=== PATIENT | female | born 1985 | race Caucasian/White ===

== ENCOUNTER 2020-03-11 17:39 | Inpatient (IN) | payer BC ==
[2020-03-11] MEDS ORDERED: Tranexamic Acid 1,000 MG in Sodium Chloride 0.9% 100 ML IV PRN (17:47)
[2020-03-11] MEDS ORDERED: Lidocaine 1% 50 ML MDV INJECT PRN (17:47)
[2020-03-11] MEDS ORDERED: Sodium Chloride 0.9% 10 ML Syringe FLUSH PRN (17:47)
[2020-03-11] MEDS ORDERED: Misoprostol 200 MCG Tab PO PRN (17:47)
[2020-03-11] MEDS ORDERED: Nalbuphine 10 MG/1 ML Vial IVPUSH PRN (17:47)
[2020-03-11] MEDS ORDERED: Methylergonovine 0.2 MG/1 ML Amp IM PRN (17:47)
[2020-03-11] MEDS ORDERED: Water For Irrigation,Sterile 1,000 ML Container IRR PRN (17:47)
[2020-03-11] MEDS ORDERED: Butorphanol 1 MG/ML SDV IVPUSH PRN (17:47)
[2020-03-11] MEDS ORDERED: Carboprost Tromethamine 250 MCG/1 ML Amp IM PRN (17:47)
[2020-03-11] MEDS ORDERED: Sodium Chloride 0.9% 2.5 ML Syringe FLUSH PRN (17:47)
[2020-03-11] MEDS ORDERED: Sodium Chloride 0.9% 10 ML SDV IV PRN (17:47)
[2020-03-11] MEDS ORDERED: Oxytocin/0.9 % Sodium Chloride 30 UNIT/500 ML BAG ONE (17:53)
[2020-03-11] MEDS ORDERED: Lactated Ringers 1,000 ML IV SCH (18:00)
[2020-03-11] MEDS ORDERED: Oxytocin/0.9 % Sodium Chloride 30 UNIT/500 ML BAG IV SCH (18:00)
[2020-03-11] MEDS ORDERED: Lanolin 100% Cream 7 GM Tube TOP PRN (19:18)
[2020-03-11] MEDS ORDERED: Docusate Sodium 100 MG Cap PO PRN (19:18)
[2020-03-11] MEDS ORDERED: oxyCODONE 5 MG Tab PO PRN (19:18)
[2020-03-11] MEDS ORDERED: Bisacodyl 10 MG Supp RECTAL PRN (19:18)
[2020-03-11] MEDS ORDERED: Ibuprofen 800 MG Tab PO PRN (19:18)
[2020-03-11] MEDS ORDERED: Benzocaine/Menthol 20%-0.5% Spray 78 GM Cannister TOP PRN (19:18)
[2020-03-11] MEDS ORDERED: Acetaminophen 500 MG Tab PO PRN (19:18)
[2020-03-11] MEDS ORDERED: Witch Hazel Medicated Pads 40/Jar TOP PRN (19:18)
--- NOTE | 2020-03-11 19:25 | PCM.DEL ---
L & D Note - General Info Date of Service: 03/11/20 Mother's Due Date: 03/19/20 - Delivery Note Labor: Spontaneous Delivery Outcome: Livebirth Infant Delivery Method: Spontaneous Vaginal Delivery-Single Presentation: Right Occiput Anterior (ANGEL) Nuchal Cord: Present, Reduced (after delivery of body) Anesthesia Type: None Amniotic Fluid Description: Clear Episiotomy Type: None Laceration: Periurethral (right, hemostatic without repair) Placenta: Intact, Spontaneous Cord: 3 Vessels (velamentous insertion) Estimated Blood Loss: 300 [place]: Suctioned, Stimulated, Warmed Score 1 min: 7 Score 5 min: 9 Delivery Comments (Free Text/Narrative):: Male fetus, 3380g - General Info Date of Service: 03/11/20 - Patient Data Weight - Most Recent: 72.575 kg I&O - Last 24 Hours: Intake & Output 03/11/20 03/11/20 03/11/20 06:59 14:59 22:59 Intake Total 1000 Balance 1000 Lab Results Last 24 Hours: Laboratory Results - last 24 hr 03/11/20 Range/Units 18:20 WBC 17.18 H (4.0-11.0) K/uL RBC 3.92 L (4.30-5.90) M/uL Hgb 12.3 (12.0-16.0) g/dL Hct 36.9 (36.0-46.0) % MCV 94.1 (80.0-98.0) fL MCH 31.4 (27.0-32.0) pg MCHC 33.3 (31.0-37.0) g/dL RDW Std Deviation 46.0 (28.0-62.0) fl RDW Coeff of Rachel 13 (11.0-15.0) % Plt Count 204 (150-400) K/uL MPV 10.00 (7.40-12.00) fL Nucleated RBC % 0.0 /100WBC Nucleated RBCs # 0 K/uL Med Orders - Current: Current Medications Acetaminophen (Tylenol Extra Strength) 1,000 mg PO Q6H PRN PRN Reason: Pain Benzocaine/Menthol (Dermoplast Pain Relief 20%-0.5% Deport) 78 gm TOP ASDIRECTED PRN PRN Reason: Perineal Comfort Measure Bisacodyl (Dulcolax) 10 mg RECTAL ONETIME PRN PRN Reason: Constipation Butorphanol Tartrate (Stadol) 1 mg IVPUSH Q1H PRN PRN Reason: Pain Carboprost Tromethamine (Hemabate Ds) 250 mcg IM ASDIRECTED PRN PRN Reason: Post Hemorrhage Docusate Sodium (Colace) 100 mg PO BID PRN PRN Reason: Constipation Emollient Ointment (Lansinoh Hpa) 0 gm TOP ASDIRECTED PRN PRN Reason: Sore Nipples Oxytocin/Sodium Chloride (Oxytocin 30 Unit/500 Ml-Ns) 30 unit in 500 mls @ 500 mls/hr IV TITRATE [facility] Last Admin: 03/11/20 19:00 Dose: 500 mls/hr Documented by: Tranexamic Acid 1,000 mg/ (Sodium Chloride) 110 mls @ 660 mls/hr IV ONETIME PRN PRN Reason: Bleeding Lactated Ringer's (Ringers, Lactated) 1,000 mls @ 150 mls/hr IV ASDIRECTED [facility] Last Admin: 03/11/20 17:45 Dose: 500 mls/hr Documented by: Ibuprofen (Motrin) 800 mg PO Q8H PRN PRN Reason: Pain Lidocaine HCl (Xylocaine 1%) 50 ml INJECT ONETIME PRN PRN Reason: Laceration repair Methylergonovine Maleate (Methergine) 0.2 mg IM ASDIRECTED PRN PRN Reason: Post Hemorrhage Misoprostol (Cytotec) 200 mcg PO ONETIME PRN PRN Reason: Post Hemorrhage Nalbuphine HCl (Nubain) 10 mg IVPUSH Q1H PRN PRN Reason: Pain (severe 7-10) Oxycodone HCl (Oxycodone) 5 mg PO Q2H PRN PRN Reason: Pain Sodium Chloride (Saline Flush) 10 ml FLUSH ASDIRECTED PRN PRN Reason: Keep Vein Open Sodium Chloride (Saline Flush) 2.5 ml FLUSH ASDIRECTED PRN PRN Reason: Keep Vein Open Sodium Chloride (Normal Saline) 10 ml IV ASDIRECTED PRN PRN Reason: IV Use Sterile Water (Sterile Water For Irrigation) 1,000 ml IRR ASDIRECTED PRN PRN Reason: delivery Last Admin: 03/11/20 18:36 Dose: 1,000 ml Documented [facility]: [facility] 1 pad TOP ASDIRECTED PRN PRN Reason: comfort care Discontinued Medications Oxytocin/Sodium Chloride (Oxytocin 30 Unit/500 Ml-Ns) Confirm Administered Dose 30 unit in 500 mls @ as directed .ROUTE .STK-MED ONE Stop: 03/11/20 17:54 - Problem List & Annotations (1) Vaginal delivery SNOMED Code(s): 690558316 Code(s): O80 - ENCOUNTER FOR FULL-TERM UNCOMPLICATED DELIVERY Status: Acute Current Visit: No - Problem List Review Problem List Initiated/Reviewed/Updated: Yes - My Orders Last 24 Hours: My Active Orders 03/11/20 Dinner Regular Diet [DIET] 03/11/20 17:25 Patient Status [ADT] Routine 03/11/20 17:47 Heart Tones [RC] CONTINUOUS Non Stress Test [RC] PER UNIT ROUTINE May Shower [RC] ASDIRECTED Notify Provider [RC] PRN Up ad Jessica [RC] ASDIRECTED Vaginal Exam [RC] PRN Vital Signs [RC] PER UNIT ROUTINE Butorphanol [Stadol] 1 mg IVPUSH Q1H PRN Carboprost Tromethamine [Hemabate DS] 250 mcg IM ASDIRECTED PRN Lidocaine 1% [Xylocaine 1%] 50 ml INJECT ONETIME PRN Methylergonovine [Methergine] 0.2 mg IM ASDIRECTED PRN Nalbuphine [Nubain] 10 mg IVPUSH Q1H PRN Sodium Chloride 0.9% [Normal Saline] 10 ml IV ASDIRECTED PRN Sodium Chloride 0.9% [Saline Flush] 10 ml FLUSH ASDIRECTED PRN Sodium Chloride 0.9% [Saline Flush] 2.5 ml FLUSH ASDIRECTED PRN Tranexamic Acid [Cyklokapron] 1,000 mg Sodium Chloride 0.9% [Normal Saline] 100 ml IV ONETIME Water For Irrigation,Sterile [Sterile Water for Irrigation] 1,000 ml IRR ASDIRECTED PRN miSOPROStoL [Cytotec] 200 mcg PO ONETIME PRN Scalp Electrode [WOMSER] Per Unit Routine Peripheral IV Insertion Adult [OM.PC] Routine Resuscitation Status Routine 03/11/20 17:49 CORONAVIRUS COVID-19 PCR PHL Stat 03/11/20 18:00 Lactated Ringers [Ringers, Lactated] 1,000 ml IV ASDIRECTED Oxytocin/0.9 % Sodium Chloride [Oxytocin 30 Unit/500 ML-NS] 30 unit in 500 ml IV TITRATE 03/11/20 18:20 RPR (SYPHILIS SERO) W/ RFLX [REF] Routine TYPE AND SCREEN [BBK] Routine 03/11/20 19:18 Notify Provider Vital Signs [RC] ASDIRECTED Acetaminophen [Tylenol Extra Strength] 1,000 mg PO Q6H PRN Benzocaine/Menthol [Dermoplast Pain Relief 20%-0.5% Deport] 78 gm TOP ASDIRECTED PRN Docusate Sodium [Colace] 100 mg PO BID PRN Ibuprofen [Motrin] 800 mg PO Q8H PRN Lanolin [Lansinoh HPA] See Dose Instructions TOP ASDIRECTED PRN bisacodyL [Dulcolax] 10 mg RECTAL ONETIME PRN oxyCODONE 5 mg PO Q2H PRN witch Agustin [Tucks] 1 pad TOP ASDIRECTED PRN 03/11/20 19:19 Patient Status [ADT] Routine Cooling Warming Measures [RC] ASDIRECTED May Shower [RC] ASDIRECTED Up ad Jessica [RC] ASDIRECTED Vital Signs [RC] PER UNIT ROUTINE Assess Lochia [WOMSER] Per Unit Routine Assess Uterine Involution [WOMSER] Per Unit Routine Ice Therapy [OM.PC] Per Unit Routine Perineal Care [OM.PC] Per Unit Routine Peripheral IV Discontinue [OM.PC] Routine Sitz Bath [OM.PC] Per Unit Routine 03/12/20 05:11 HEMOGLOBIN/HEMATOCRIT,HH [HEME] Timed - Assessment Assessment:: 35yo s/p at 38w6d - Plan Plan:: Admit to unit for routine care. Velamentous cord insertion without difficulty delivering placenta.
--- NOTE | 2020-03-11 23:52 | OR ---
SURGEON: Blanca Starr MD DATE OF PROCEDURE: 03/11/2020 PREOPERATIVE DIAGNOSES: 1. A 35-year-old 4, para 3-0-0-3 at 38 weeks and 6 days gestation. 2. Labor. 3. Group B streptococcus negative. 4. Velamentous cord insertion. POSTOPERATIVE DIAGNOSES: 1. A 35-year-old 4, para 3-0-0-3 at 38 weeks and 6 days gestation. 2. Labor. 3. Group B streptococcus negative. 4. Velamentous cord insertion. PROCEDURE: Spontaneous vaginal delivery. PRIMARY SURGEON: Blanca Starr MD. ANESTHESIA: None. ESTIMATED BLOOD LOSS: 300 mL. FINDINGS: Live male infant in right occiput anterior position. score 7 and 9 at one and five minutes respectively. Weight 3280 g. Nuchal cord x1. Right periurethral laceration, hemostatic without repair. INDICATIONS: This is a 35-year-old G4, P 3-0-0-3, who presented at 38 weeks and 6 days gestation complaining of contractions for several hours. Upon presentation, her cervix was found to be 9 cm dilated. She was admitted to Labor and Delivery for expectant management of active labor. She progressed to complete cervical dilation, and artificial rupture of membranes occurred. DESCRIPTION OF PROCEDURE: After artificial rupture of membranes, the patient began pushing and delivered a live male . The head was delivered followed by the shoulders and remainder of the body. The nuchal cord x1 was reduced after delivery of body. The infant was placed on the maternal abdomen. After approximately 60 seconds, the cord was clamped and cut. The placenta then delivered intact with 3-vessel cord via the Son-Holcomb maneuver. Velamentous cord insertion was confirmed. The perineum was inspected and a right periurethral laceration was noted, but was hemostatic without repair. The fundus was firm below the umbilicus with minimal bleeding. The patient and infant tolerated the delivery well. [id number] / MODL /[id number]
--- NOTE | 2020-03-12 08:40 | PCM.PNPP ---
- General Info Date of Service: 03/12/20 Subjective Update: 35yo P4 s/p PPD1 ,she denies any complains She is , tolerating regular diet Functional Status: Reports: Pain Controlled, Tolerating Diet, Ambulating, Urinating - Review of Systems General: Reports: No Symptoms HEENT: Reports: No Symptoms Pulmonary: Reports: No Symptoms Cardiovascular: Reports: No Symptoms Gastrointestinal: Reports: No Symptoms Genitourinary: Reports: No Symptoms Musculoskeletal: Reports: No Symptoms Skin: Reports: No Symptoms Neurological: Reports: No Symptoms Psychiatric: Reports: No Symptoms - General Info Date of Service: 03/12/20 - Patient Data Vital Signs - Most Recent: Last Vital Signs Temp 37.4 C 03/11/20 23:59 Pulse 80 03/11/20 23:59 Resp BP 109/57 L 03/11/20 23:59 Pulse Ox 96 03/11/20 23:59 Weight - Most Recent: 72.575 kg I&O - Last 24 Hours: Intake & Output 03/11/20 03/12/20 03/12/20 22:59 06:59 14:59 Intake Total 1000 Balance 1000 Lab Results - Last 24 Hours: Laboratory Results - last 24 hr 03/11/20 03/11/20 03/11/20 Range/Units 18:20 18:20 21:45 WBC 17.18 H (4.0-11.0) K/uL RBC 3.92 L (4.30-5.90) M/uL Hgb 12.3 (12.0-16.0) g/dL Hct 36.9 (36.0-46.0) % MCV 94.1 (80.0-98.0) fL MCH 31.4 (27.0-32.0) pg MCHC 33.3 (31.0-37.0) g/dL RDW Std Deviation 46.0 (28.0-62.0) fl RDW Coeff of Rachel 13 (11.0-15.0) % Plt Count 204 (150-400) K/uL MPV 10.00 (7.40-12.00) fL Nucleated RBC % 0.0 /100WBC Nucleated RBCs # 0 K/uL SARS-CoV-2 RNA (ERICA) NEGATIVE (NEGATIVE) Blood Type A POSITIVE Antibody Screen NEGATIVE 03/12/20 Range/Units 05:50 WBC (4.0-11.0) K/uL RBC (4.30-5.90) M/uL Hgb 11.2 L (12.0-16.0) g/dL Hct 33.3 L (36.0-46.0) % MCV (80.0-98.0) fL MCH (27.0-32.0) pg MCHC (31.0-37.0) g/dL RDW Std Deviation (28.0-62.0) fl RDW Coeff of Rachel (11.0-15.0) % Plt Count (150-400) K/uL MPV (7.40-12.00) fL Nucleated RBC % /100WBC Nucleated RBCs # K/uL SARS-CoV-2 RNA (ERICA) (NEGATIVE) Blood Type Antibody Screen Med Orders - Current: Current Medications Acetaminophen (Tylenol Extra Strength) 1,000 mg PO Q6H PRN PRN Reason: Pain Benzocaine/Menthol (Dermoplast Pain Relief 20%-0.5% [place]) 0 gm TOP ASDIRECTED PRN PRN Reason: Perineal Comfort Measure Last Admin: 03/11/20 20:37 Dose: 1 cartridge Documented by: Bisacodyl (Dulcolax) 10 mg RECTAL ONETIME PRN PRN Reason: Constipation Butorphanol Tartrate (Stadol) 1 mg IVPUSH Q1H PRN PRN Reason: Pain Carboprost Tromethamine (Hemabate Ds) 250 mcg IM ASDIRECTED PRN PRN Reason: Post Hemorrhage Docusate Sodium (Colace) 100 mg PO BID PRN PRN Reason: Constipation Emollient Ointment (Lansinoh Hpa) 0 gm TOP ASDIRECTED PRN PRN Reason: Sore Nipples Last Admin: 03/11/20 20:38 Dose: 7 gm Documented by: Oxytocin/Sodium Chloride (Oxytocin 30 Unit/500 Ml-Ns) 30 unit in 500 mls @ 500 mls/hr IV TITRATE [facility] Last Admin: 03/11/20 19:00 Dose: 500 mls/hr Documented by: Tranexamic Acid 1,000 mg/ (Sodium Chloride) 110 mls @ 660 mls/hr IV ONETIME PRN PRN Reason: Bleeding Lactated Ringer's (Ringers, Lactated) 1,000 mls @ 150 mls/hr IV ASDIRECTED EDWIN Last Admin: 03/11/20 17:45 Dose: 500 mls/hr Documented by: Ibuprofen (Motrin) 800 mg PO Q8H PRN PRN Reason: Pain Lidocaine HCl (Xylocaine 1%) 50 ml INJECT ONETIME PRN PRN Reason: Laceration repair Methylergonovine Maleate (Methergine) 0.2 mg IM ASDIRECTED PRN PRN Reason: Post Hemorrhage Misoprostol (Cytotec) 200 mcg PO ONETIME PRN PRN Reason: Post Hemorrhage Nalbuphine HCl (Nubain) 10 mg IVPUSH Q1H PRN PRN Reason: Pain (severe 7-10) Oxycodone HCl (Oxycodone) 5 mg PO Q2H PRN PRN Reason: Pain Sodium Chloride (Saline Flush) 10 ml FLUSH ASDIRECTED PRN PRN Reason: Keep Vein Open Sodium Chloride (Saline Flush) 2.5 ml FLUSH ASDIRECTED PRN PRN Reason: Keep Vein Open Sodium Chloride (Normal Saline) 10 ml IV ASDIRECTED PRN PRN Reason: IV Use Sterile Water (Sterile Water For Irrigation) 1,000 ml IRR ASDIRECTED PRN PRN Reason: delivery Last Admin: 03/11/20 18:36 Dose: 1,000 ml Documented by: Gayatri Lara) 1 pad TOP ASDIRECTED PRN PRN Reason: comfort care Last Admin: 03/11/20 20:37 Dose: 1 cartridge Documented by: Discontinued Medications Oxytocin/Sodium Chloride (Oxytocin 30 Unit/500 Ml-Ns) Confirm Administered Dose 30 unit in 500 mls @ as directed .ROUTE .STK-MED ONE Stop: 03/11/20 17:54 - Interaction Support Person: - Recovery Exam Fundal Tone: Firm Fundal Level: 1 Fingerbreadths Below Umbilicus Fundal Placement: Midline Lochia Amount: Scant Lochia Color: Rubra/Red Episiotomy/Laceration: Approximated Bladder Status: Voiding - Exam General: Alert HEENT: Pupils Equal Neck: Supple Lungs: Clear to Auscultation Cardiovascular: Regular Rate, Regular Rhythm GI/Abdominal Exam: Normal Bowel Sounds Extremities: Normal Inspection Neurological: No New Focal Deficit Psy/Mental Status: Alert - Problem List & Annotations (1) Vaginal delivery SNOMED Code(s): 370630775 Code(s): O80 - ENCOUNTER FOR FULL-TERM UNCOMPLICATED DELIVERY Status: Acute Current Visit: No - Problem List Review Problem List Initiated/Reviewed/Updated: Yes - Assessment Assessment:: 35yo P4 s/p PPD1 , normal lochia, - Plan Plan:: Routine Discharge home today
[2020-03-12 20:19] VITALS: BP 111/61; PULSE 63
== END 2020-03-12 21:30 | disposition home or self-care (01) | DRG 560 ==
LOC: MW.OBCHECK 17:39 → MW.OB 17:40 → OBSVTOIN 19:19 → MW.OB 19:19 → MW.OBCHECK 19:19 → MW.OB 22:26
PROVIDERS: ADMIT Obstetrics & Gynecology; ATTEND Obstetrics & Gynecology
PROC: 10E0XZZ Delivery of Products of Conception, External Approach (ICD-10-PCS; principal; 2020-03-11)
PROC: 10907ZC Drainage of Amniotic Fluid, Therapeutic from Products of Conception, Via Natural or Artificial Opening (ICD-10-PCS; 2020-03-11)
PROC: 0HQ9XZZ Repair Perineum Skin, External Approach (ICD-10-PCS; 2020-03-11)
DX: O43.123 Velamentous insertion of umbilical cord, third trimester (principal); Z3A.39 39 weeks gestation of pregnancy; Z37.0 Single live birth; O70.0 First degree perineal laceration during delivery; O69.81X0 Labor and delivery complicated by cord around neck, without compression, not applicable or unspecified; Z20.828 Contact with and (suspected) exposure to other viral communicable diseases
CPT/HCPCS: 36415; 59025; 59409; 85014; 85018; 85027; 86592; 86850; 86900; 86901; A9270-GY; J2590; J7120; U0002